=== PATIENT | female | born 1990 | race Caucasian/White ===

== ENCOUNTER 2016-12-07 13:53 | Emergency (ER) | payer OTHER ==
[~2016-12-07] VITALS: Ht 157.5 cm; Wt 68.0 kg
[~2016-12-07 13:53] MED LIST: ARIP1TAB12 PO; HYDR-3133 PO; MIRTA15 PO
[2016-12-07 13:54] VITALS: BP 127/83; PULSE 67; RESP 18; TEMP 98.2; O2SAT 97
[2016-12-07] MEDS ORDERED: PROZ20CA11 PO (17:03)
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
[2016-12-07 17:41] LABS: AMPHETAMINE, URINE NEG (NEG); BARBITURATES, URINE NEG (NEG); COCAINE, URINE NEG (NEG)
[2016-12-07] MEDS ORDERED: SODIUM CHLOR 0.9% 1000 ML INJ 1,000 ML IV ONE (17:45)
[2016-12-07] MEDS ORDERED: diphenhydrAMINE HCL 50 MG/ML VIAL IV PUSH ONE (17:45)
[2016-12-07] MEDS ORDERED: DEXAMETHASONE SOD PHOS 20 MG/5 ML VIAL IV PUSH ONE (17:45)
[2016-12-07] MEDS ORDERED: METOCLOPRAMIDE HCL 10 MG/2 ML VIAL IV PUSH ONE (17:45)
[2016-12-07 17:48] LABS: AUTOMATED NEUTROPHIL # 8.3 TH/MM3 (1.8-7.7); BASOPHIL % 0.3 % (0.0-2.0); EOSINOPHIL # 0.1 TH/MM3 (0-0.4); HEMATOCRIT 39.2 % (35.0-46.0); HEMO FLAGS DIFF FINAL; LYMPH % 22.2 % (9.0-44.0); LYMPHOCYTE # 2.5 TH/MM3 (1.0-4.8); MEAN CELL VOLUME 89.4 FL (80.0-100.0); MEAN CORPUSCULAR HGB CONC 34.6 % (32.0-36.0); MONO % 3.7 % (0.0-8.0); NEUT % 72.8 % (16.0-70.0); PLATELET COUNT 243 TH/MM3 (150-450); RED BLOOD COUNT 4.39 MIL/MM3 (4.00-5.30); RED CELL DISTRIBUTION WIDTH 13.5 % (11.6-17.2); WHITE BLOOD COUNT 11.4 TH/MM3 (4.0-11.0)
[2016-12-07 18:01] LABS: ACETAMINOPHEN LESS THAN 2.0 MCG/ML (10.0-30.0)
[2016-12-07 18:02] LABS: ALT (GPT) 14 U/L (10-53); ANION GAP 7 MEQ/L (5-15); AST (GOT) 12 U/L (15-37); BICARBONATE 27.6 MEQ/L (21.0-32.0); BLOOD UREA NITROGEN 5 MG/DL (7-18); CHLORIDE 106 MEQ/L (98-107); GLOMERULAR FILTRATION RATE 100 ML/MIN (>89); POTASSIUM 3.5 MEQ/L (3.5-5.1); SODIUM (NA) 141 MEQ/L (136-145)
[2016-12-07 18:05] LABS: ALKALINE PHOSPHATASE 61 U/L (45-117); TOTAL BILIRUBIN ADULT 0.4 MG/DL (0.2-1.0)
[2016-12-07 21:56] VITALS: BP 106/57; PULSE 60; RESP 18; O2SAT 97
[2016-12-08 01:45] VITALS: BP 110/56; PULSE 61; RESP 18; O2SAT 99
== END 2016-12-08 04:05 ==
LOC: NEPC 13:53
DX: R46.89 Other symptoms and signs involving appearance and behavior (principal); R45.851 Suicidal ideations; Z86.59 Personal history of other mental and behavioral disorders; Z86.79 Personal history of other diseases of the circulatory system; Z87.19 Personal history of other diseases of the digestive system; Z86.69 Personal history of other diseases of the nervous system and sense organs
CPT/HCPCS: 80053; 80307; 84703; 85025; 96361; 96374; 96375; 99284; J1100; J1200; J2765; J7030

== ENCOUNTER 2017-02-05 14:48 | Emergency (ER) | payer OTHER ==
[~2017-02-05] VITALS: Ht 160 cm; Wt 70.8 kg
[~2017-02-05 14:48] MED LIST changes: -ARIP1TAB12 PO; -HYDR-3133 PO; -MIRTA15 PO; +PROZ20CA11 PO
[2017-02-05 14:52] VITALS: BP 114/74; PULSE 86; RESP 18; TEMP 98.6; O2SAT 98
[2017-02-05] MEDS ORDERED: EQUE200C PO (15:07)
[2017-02-05] MEDS ORDERED: NEUR100C PO (15:07)
[2017-02-05] MEDS ORDERED: ZOLO100T PO (15:07)
[2017-02-05] MEDS ORDERED: EQUE100C PO (15:07)
--- NOTE | 2017-02-05 15:11 | PD ---
HPI Chief Complaint: Abdominal Pain Time Seen by Provider: 15:09 Travel History International Travel<30 days: No Contact w/Intl Traveler<30days: No Traveled to known affect area: No History of Present Illness HPI 26-year-old female with history of no significant past medical issues, presents to the ER 1 week history of lower abdominal pains which she currently rates it a 7 out of 10. She has been having dysuria. She denies any nausea, vomiting, fevers, back pains, or any other symptoms. She denies any unusual vaginal discharge. Modifying Factors: None Associated Signs & Symptoms: Lower abdominal discomfort and dysuria Risk Factors: None PFSH Past Medical History ADHD: Yes Bipolar Disorder: Yes Anxiety: Yes Depression: Yes Cancer: No Cardiovascular Problems: Yes (HEART MURMUR) Diminished Hearing: No Endocrine: No GERD: Yes Genitourinary: No Headaches: Yes Implanted Vascular Access Dvce: No Medical other: Yes (VIRAL MENINGITIS) Musculoskeletal: No Psychiatric: Yes (SCHIZOPHRENIA DX AGE 9, BIPOLAR, RAD, ADHD) Reproductive: No Respiratory: No Migraines: Yes Schizophrenia: Yes Tetanus Vaccination: < 5 Years Influenza Vaccination: No ?: Not LMP: 3 weeks ago : 3 Para: 3 Miscarriage: 0 : 0 Tubal Ligation: Yes Past Surgical History Section: Yes (X's 3) Other Surgery: Yes (C - SECTION, TUBAL) Social History Alcohol Use: No Tobacco Use: No Substance Use: No Allergies-Medications (Allergen,Severity, Reaction): Coded Allergies: No Known Allergies (Verified , 02/05/17) Reported Meds & Prescriptions Reported Meds & Active Scripts Active Reported Equetro ER 12 HR (Carbamazepine ER 12 HR) 200 Mg Cap 200 Mg PO HS Equetro ER 12 HR (Carbamazepine ER 12 HR) 100 Mg Cap 100 Mg PO AM Zoloft (Sertraline HCl) 100 Mg Tab 100 Mg PO DAILY Neurontin (Gabapentin) 100 Mg Cap 100 Mg PO TID Review of Systems Except as stated in HPI: all other systems reviewed are Neg Physical Exam Narrative GENERAL: Well-developed young white female patient currently none acute distress. Awake and oriented 3. SKIN: Focused skin assessment warm/dry. HEAD: Atraumatic. Normocephalic. EYES: Pupils equal and round. No scleral icterus. No injection or drainage. ENT: No nasal bleeding or discharge. Mucous membranes pink and moist. NECK: Trachea midline. No JVD. CARDIOVASCULAR: Regular rate and rhythm. No murmur appreciated. RESPIRATORY: No accessory muscle use. Clear to auscultation. Breath sounds equal bilaterally. GASTROINTESTINAL: Abdomen soft, mild suprapubic tenderness without guarding or rebound, nondistended. Hepatic and splenic margins not palpable. MUSCULOSKELETAL: No obvious deformities. No clubbing. No cyanosis. No edema. NEUROLOGICAL: Awake and alert. No obvious cranial nerve deficits. Motor grossly within normal limits. Normal speech. PSYCHIATRIC: Appropriate mood and affect; insight and judgment normal. Data Data Last Documented VS Vital Signs Date Time Temp Pulse Resp B/P Pulse Ox O2 Delivery O2 Flow Rate FiO2 02/05/17 14:52 98.6 86 18 114/74 98 Orders Ed Urine Pregnancytest Poc (02/05/17 15:05) Urinalysis - C+S If Indicated (02/05/17 15:10) Urine Culture (02/05/17 15:15) Labs Laboratory Tests Test 02/05/17 15:15 Urine Color YELLOW Urine Turbidity CLOUDY Urine pH 6.5 Urine Protein 100 mg/dL Urine Glucose (UA) NEG mg/dL Urine Ketones NEG mg/dL Urine Occult Blood SMALL Urine Nitrite NEG Urine Bilirubin NEG Urine Leukocyte Esterase LARGE Urine RBC 4-9 /hpf Urine WBC INNUM /hpf Urine WBC Clumps MOD Urine Squamous Epithelial 0-5 /hpf Cells Urine Bacteria MOD /hpf Microscopic Urinalysis Comment CULTURE INDICATED MDM Medical Decision Making Medical Screen Exam Complete: Yes Emergency Medical Condition: Yes Medical Record Reviewed: Yes Differential Diagnosis Lower abdominal discomfortUTI versus gastroenteritis versus Narrative Course Patient is not . Abdomen is fairly benign and I do not suspect an acute intra-abdominal process. She has a UTI which I plan to treat. At this point, my plan would be to release her with antibiotics and have her follow-up with primary care physician. Return for any worsening in pain, vomiting, or new symptoms as needed. The plan has been discussed with the patient and she states understanding. Diagnosis Primary Impression: UTI (urinary tract infection) Med/Other Pt SpecificInfo: Prescription(s) given Scripts Nitrofurantoin Monohydrate Macrocrystals (Macrobid)100 Mg [id number] Mg PO BID 7 Days Ref 0 Prov:Ninoska Dangelo MD 02/05/17 Disposition: 01 DISCHARGE HOME Condition: Stable [place]ai,Rewadee MD February 05, 2017 15:11
[2017-02-05 15:20] LABS: BLOOD, URINE SMALL (NEG); GLUCOSE,URINE NEG (NEG); KETONE, URINE NEG (NEG); NITRITE,URINE NEG (NEG); PH, URINE 6.5 (5.0-8.5)
[2017-02-05 16:00] LABS: URINE COLOR YELLOW (YELLW/STRAW)
[2017-02-05 16:02] LABS: BACTERIA, URINE MOD /hpf; COMMENT (UR) CULTURE INDICATED; CULTURE IF INDICATED CULTURE INDICATED; SQUAMOUS EPITHELIAL CELL URINE 0-5 /hpf (0-5); WBC, URINE INNUM /hpf (0-5)
[2017-02-05] MEDS ORDERED: MACR100C2 PO (16:07)
[2017-02-06] MEDS ORDERED: ROBA500T PO (19:25)
== END 2017-02-05 16:25 | disposition home or self-care (01) ==
LOC: PHED 14:48
DX: N39.0 Urinary tract infection, site not specified (principal)
CPT/HCPCS: 81001; 84703; 87077; 87086; 87186; 99284

== ENCOUNTER 2017-02-06 18:09 | Inpatient (IN) | payer OTHER ==
[~2017-02-06] VITALS: Ht 160 cm; Wt 72.1 kg
[2017-02-06] VITALS (10 sets, daily range): BP systolic 97–127; BP diastolic 62–70; PULSE 84–95; RESP 16–20; TEMP 98.6–101.6; O2SAT 97–100
[~2017-02-06 18:09] MED LIST changes: +EQUE100C PO; +EQUE200C PO; +MACR100C2 PO; +NEUR100C PO; -PROZ20CA11 PO; +ZOLO100T PO
[2017-02-06] MEDS ORDERED: SODIUM CHLOR 0.9% 1000 ML INJ 1,000 ML IV ONE (18:50)
[2017-02-06] MEDS ORDERED: CEFEPIME INJ 2,000 MG in SODIUM CHLORIDE 0.9% INJ 100 ML IV STA (18:50)
[2017-02-06] MEDS ORDERED: ACETAMINOPHEN 325 MG TAB PO ONE (19:00)
[2017-02-06 19:08] LABS: AUTOMATED NEUTROPHIL # 10.8 TH/MM3 (1.8-7.7); BASOPHIL % 0.2 % (0.0-2.0); EOSINOPHIL # 0.1 TH/MM3 (0-0.4); EOSINOPHIL % 0.4 % (0.0-4.0); LYMPH % 9.1 % (9.0-44.0); LYMPHOCYTE # 1.2 TH/MM3 (1.0-4.8); MEAN CORPUSCULAR HEMOGLOBIN 31.2 PG (27.0-34.0); MEAN CORPUSCULAR HGB CONC 34.7 % (32.0-36.0); MONO % 6.1 % (0.0-8.0); NEUT % 84.2 % (16.0-70.0); PLATELET COUNT 193 TH/MM3 (150-450); RED BLOOD COUNT 4.34 MIL/MM3 (4.00-5.30); RED CELL DISTRIBUTION WIDTH 12.4 % (11.6-17.2); WHITE BLOOD COUNT 12.9 TH/MM3 (4.0-11.0)
[2017-02-06 19:11] LABS: HEMO FLAGS DIFF FINAL
[2017-02-06 19:16] LABS: CHLORIDE 103 MEQ/L (98-107); POTASSIUM 3.3 MEQ/L (3.5-5.1); SODIUM (NA) 139 MEQ/L (136-145)
[2017-02-06 19:20] LABS: ANION GAP 8 MEQ/L (5-15); BLOOD UREA NITROGEN 6 MG/DL (7-18)
[2017-02-06 19:23] LABS: ALT (GPT) 21 U/L (10-53); AST (GOT) 19 U/L (15-37); GLOMERULAR FILTRATION RATE 93 ML/MIN (>89)
[2017-02-06 19:24] LABS: TOTAL BILIRUBIN ADULT 0.5 MG/DL (0.2-1.0)
[2017-02-06] MEDS ORDERED: ROBA500T PO (19:25)
[2017-02-06 19:26] LABS: ALKALINE PHOSPHATASE 79 U/L (45-117)
--- NOTE | 2017-02-06 19:28 | PD ---
HPI Chief Complaint: Syncope/Near-Syncope Time Seen by Provider: 19:09 Travel History International Travel<30 days: No Contact w/Intl Traveler<30days: No Traveled to known affect area: No History of Present Illness HPI The patient is a 26-year-old female that passed out about 3 times the last 24 hours. She passed out yesterday at work and then again today and then had a near syncopal episode today. Is not known when she had the syncopal episode whether she was sitting or standing, and she has not remember the episode. She does have a history of seizures and is on Tegretol for this. Her mother states she was trying to call her in the bathroom for about 10 minutes and she was out for another 5 minutes after she was found. The patient denies any injury or tongue biting. She did apparently landed on her left shoulder and had some temporary discomfort on the anterior portion of the shoulder but this is gone now. She denies any head or neck trauma. She has had a fever and was treated with Macrobid for urinary tract infection yesterday. She states she is taking her medications correctly. She does not have a primary care physician, Dr. De Dios is her psychiatrist. She is on multiple psychotropic agents. She does have a history of ADHD, bipolar disorder, depression, schizophrenia, migraine headaches and anxiety. 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 She denies any headache or stiff neck at this time. PFSH Past Medical History ADHD: Yes Bipolar Disorder: Yes Anxiety: Yes Depression: Yes Cancer: No Cardiovascular Problems: Yes (HEART MURMUR) Diminished Hearing: No Endocrine: No GERD: Yes Genitourinary: No Headaches: Yes Implanted Vascular Access Dvce: No Medical other: Yes (VIRAL MENINGITIS) Musculoskeletal: No Psychiatric: Yes (SCHIZOPHRENIA DX AGE 9, BIPOLAR, RAD, ADHD) Reproductive: No Respiratory: No Migraines: Yes Schizophrenia: Yes Influenza Vaccination: No ?: Not LMP: 01/04/17 : 3 Para: 3 Miscarriage: 0 : 0 Tubal Ligation: Yes Past Surgical History Section: Yes (X's 3) Other Surgery: Yes (C - SECTION, TUBAL) Social History Alcohol Use: No Tobacco Use: No Substance Use: No Allergies-Medications (Allergen,Severity, Reaction): Coded Allergies: No Known Allergies (Verified , 02/06/17) Reported Meds & Prescriptions Reported Meds & Active Scripts Active Macrobid (Nitrofurantoin Monoh/Nitrofur Macro) 100 Mg Cap 100 Mg PO BID 7 Days Reported Robaxin (Methocarbamol) 500 Mg Tab 500 Mg PO TID PRN Equetro ER 12 HR (Carbamazepine ER 12 HR) 200 Mg Cap 200 Mg PO HS Equetro ER 12 HR (Carbamazepine ER 12 HR) 100 Mg Cap 100 Mg PO AM Zoloft (Sertraline HCl) 100 Mg Tab 100 Mg PO DAILY Neurontin (Gabapentin) 100 Mg Cap 100 Mg PO TID Review of Systems Except as stated in HPI: all other systems reviewed are Neg Physical Exam Narrative GENERAL: The patient is alert, oriented 3 in no apparent distress. Her vital signs show blood pressure of 97/70, pulse of 91 and temperature 101.6. SKIN: Focused skin assessment warm/dry. HEAD: Atraumatic. Normocephalic. EYES: Pupils equal and round. No scleral icterus. No injection or drainage. ENT: No nasal bleeding or discharge. Mucous membranes pink and moist. NECK: Trachea midline. No JVD. CARDIOVASCULAR: Regular rate and rhythm. No murmur appreciated. RESPIRATORY: No accessory muscle use. Clear to auscultation. Breath sounds equal bilaterally. GASTROINTESTINAL: Abdomen soft, non-tender, nondistended. Hepatic and splenic margins not palpable. No guarding or rebound is present. MUSCULOSKELETAL: No obvious deformities. No clubbing. No cyanosis. No edema. There is minimal tenderness on the left anterior shoulder but no deformity and the patient has full range of motion of the shoulder without any pain or radiation of pain. NEUROLOGICAL: Awake and alert. No obvious cranial nerve deficits. Motor grossly within normal limits. Normal speech. PSYCHIATRIC: Appropriate mood and affect; insight and judgment normal. Data Data Last Documented VS Vital Signs Date Time Temp Pulse Resp B/P Pulse Ox O2 Delivery O2 Flow Rate FiO2 02/06/17 20:30 84 18 106/63 100 Room Air 02/06/17 19:30 98.9 Orders Complete Blood Count With Diff (02/06/17 18:50) Comprehensive Metabolic Panel (02/06/17 18:50) Lactic Acid Sepsis Protocol (02/06/17 18:50) Urinalysis - C+S If Indicated (02/06/17 18:50) Blood Culture (02/06/17 18:50) Chest, Single Ap (02/06/17 18:50) Blood Glucose (02/06/17 18:50) Ecg Monitoring (02/06/17 18:50) Iv Access Insert/Monitor (02/06/17 18:50) Oximetry (02/06/17 18:50) Oxygen Administration (02/06/17 18:50) Acetaminophen (Tylenol) (02/06/17 19:00) Cefepime Inj (Maxipime Inj) (02/06/17 18:50) Sodium Chlor 0.9% 1000 Ml Inj (Ns 1000 M (02/06/17 18:50) Ed Urine Pregnancytest Poc (02/06/17 18:50) Sodium Chlor 0.9% 1000 Ml Inj (Ns 1000 M (02/06/17 19:15) Drug Screen, Random Urine (02/06/17 19:19) Electrocardiogram (02/06/17 ) Alcohol (Ethanol) (02/06/17 18:35) Carbamazepine (Tegretol) (02/06/17 18:35) Vancomycin Consult Pharmacy (Vancomycin (02/06/17 20:45) Cefepime Inj (Maxipime Inj) (02/07/17 08:00) ^ Seizure Precautions (02/06/17 20:42) Lorazepam Inj (Ativan Inj) (02/06/17 20:45) Admit To Inpatient (02/06/17 ) Vital Signs (Adult) Q4H (02/06/17 20:42) Activity Oob With Assistance (02/06/17 20:42) Incubator Tender / Telemetry .CONTINUOUS (02/06/17 20:42) Intake + Output MATTHEW.QSHIFT (02/06/17 20:42) Diet Regular Basic (02/07/17 Breakfast) Sodium Chlor 0.9% 1000 Ml Inj (Ns 1000 M (02/06/17 20:42) Sodium Chloride 0.9% Flush (Ns Flush) (02/06/17 20:45) Sodium Chloride 0.9% Flush (Ns Flush) (02/06/17 21:00) Ondansetron Inj (Zofran Inj) (02/06/17 20:45) Bisacodyl Supp (Dulcolax Supp) (02/06/17 20:45) Comprehensive Metabolic Panel (02/07/17 06:00) Complete Blood Count With Diff (02/07/17 06:00) Scd Bilateral/Knee High MATTHEW.BID (02/06/17 20:42) Daren Bilateral/Knee High MATTHEW.QSHIFT (02/06/17 20:42) Acetaminophen (Tylenol) (02/06/17 20:45) Acetamin-Hydrocod 325-5 Mg (Antelope 5-325 (02/06/17 20:45) Acetamin-Hydrocod 325-10 Mg (Antelope 10-32 (02/06/17 20:45) Inpatient Certification (02/06/17 ) Gabapentin (Neurontin) (02/07/17 09:00) Sertraline (Zoloft) (02/07/17 09:00) Patient Own Medication (02/06/17 21:15) Admit Order (Ed Use Only) (02/06/17 21:06) Patient Own Medication (02/07/17 09:00) Labs Laboratory Tests Test 02/06/17 02/06/17 02/06/17 18:35 19:20 21:00 White Blood Count 12.9 TH/MM3 Red Blood Count 4.34 MIL/MM3 Hemoglobin 13.5 GM/DL Hematocrit 39.0 % Mean Corpuscular Volume 90.0 FL Mean Corpuscular Hemoglobin 31.2 PG Mean Corpuscular Hemoglobin 34.7 % Concent Red Cell Distribution Width 12.4 % Platelet Count 193 TH/MM3 Mean Platelet Volume 8.0 FL Neutrophils (%) (Auto) 84.2 % Lymphocytes (%) (Auto) 9.1 % Monocytes (%) (Auto) 6.1 % Eosinophils (%) (Auto) 0.4 % Basophils (%) (Auto) 0.2 % Neutrophils # (Auto) 10.8 TH/MM3 Lymphocytes # (Auto) 1.2 TH/MM3 Monocytes # (Auto) 0.8 TH/MM3 Eosinophils # (Auto) 0.1 TH/MM3 Basophils # (Auto) 0.0 TH/MM3 CBC Comment DIFF FINAL Differential Comment Sodium Level 139 MEQ/L Potassium Level 3.3 MEQ/L Chloride Level 103 MEQ/L Carbon Dioxide Level 28.0 MEQ/L Anion Gap 8 MEQ/L Blood Urea Nitrogen 6 MG/DL Creatinine 0.74 MG/DL Estimat Glomerular Filtration 93 ML/MIN Rate Random Glucose 101 MG/DL Calcium Level 8.6 MG/DL Total Bilirubin 0.5 MG/DL Aspartate Amino Transf 19 U/L (AST/SGOT) Alanine Aminotransferase 21 U/L (ALT/SGPT) Alkaline Phosphatase 79 U/L Total Protein 8.0 GM/DL Albumin 3.6 GM/DL Carbamazepine (Tegretol) Level 2.3 MCG/ML Ethyl Alcohol Level LESS THAN 3 MG/DL Lactic Acid Level 0.7 mmol/L Urine Color YELLOW Urine Turbidity CLEAR Urine pH 6.0 Urine Specific [place] 1.012 Urine Protein TRACE mg/dL Urine Glucose (UA) NEG mg/dL Urine Ketones NEG mg/dL Urine Occult Blood NEG Urine Nitrite NEG Urine Bilirubin NEG Urine Leukocyte Esterase TRACE Urine RBC 0-3 /hpf Urine WBC 20-24 /hpf Urine Squamous Epithelial 0-5 /hpf Cells Urine Bacteria FEW /hpf Microscopic Urinalysis Comment CULTURE INDICATED Urine Opiates Screen NEG Urine Barbiturates Screen NEG Urine Amphetamines Screen NEG Urine Benzodiazepines Screen NEG Urine Cocaine Screen NEG Urine Cannabinoids Screen NEG MDM Medical Decision Making Medical Screen Exam Complete: Yes Emergency Medical Condition: Yes Medical Record Reviewed: Yes Interpretation(s) The urine shows trace leukocyte Estrace, 20-24 white cells and few bacteria and culture is indicated. Differential Diagnosis Sepsis, dehydration, viral gastroenteritis, urinary tract infection, electrolyte disorder, pregnancyunlikely, renal insufficiency Narrative Course The patient had sepsis criteria by elevated heart rate, elevated white count and temperature. Her lactic acid was normal. Very likely the source of the fever/infection is a urinary tract infection. She very likely has a pyelonephritis. The patient will be admitted to the [facility] service. Sepsis Criteria SIRS Criteria (2 or more): Temp > 100.9 or < 96.8, Heart rate over 90, WBC > 99057, < 4000 or > 10% bands Physician Communication Physician Communication I discussed the patient with Dr. Hobbs. Diagnosis Primary Impression: Sepsis Additional Impressions: Urinary tract infection Hypotension Dehydration Admitting Information Admitting Physician Requests: Admit Marcos Iniguez MD February 06, 2017 19:28
--- NOTE | 2017-02-06 19:56 | RADHPO ---
EXAM DATE/TIME: 02/06/2017 19:02 [facility] COMPARISON: No previous studies available for comparison. INDICATIONS : Fever. Syncopal episode. MEDICAL HISTORY : None. SURGICAL HISTORY : None. ENCOUNTER: Initial ACUITY: 1 day PAIN SCORE: 0/10 LOCATION: Bilateral chest FINDINGS: A single view of the chest demonstrates the lungs to be symmetrically aerated without evidence of mas s, infiltrate or effusion. The cardiomediastinal contours are unremarkable. Osseous structures are intact. CONCLUSION: No acute disease. Jeffrey Quiroz MD on February 06, 2017 at 19:54 Board Certified Radiologist. This report was verified electronically.
[2017-02-06] MEDS: SODIUM CHLOR 0.9% 1000 ML INJ 1,000 ML IV SCH ×3 (20:38→21:58)
[2017-02-06] MEDS ORDERED: Vancomycin Consult Pharmacy 1 EA OTHER SCH (20:45)
[2017-02-06] MEDS ORDERED: ACETAMINOPHEN 325 MG TAB PO PRN (20:45)
[2017-02-06] MEDS ORDERED: ACETAMINOPHEN/HYDROcodone 325 MG/5 MG TAB PO PRN (20:45)
[2017-02-06] MEDS ORDERED: ONDANSETRON HCL 4 MG/2 ML VIAL IVP PRN (20:45)
[2017-02-06] MEDS ORDERED: LORazepam 2 MG/ML VIAL IV PUSH PRN (20:45)
[2017-02-06] MEDS ORDERED: SODIUM CHLORIDE 0.9% FLUSH 10 ML FLUSH IV FLUSH PRN (20:45)
[2017-02-06] MEDS ORDERED: BISACODYL 10 MG SUPP RECTAL PRN (20:45)
[2017-02-06] MEDS: SODIUM CHLORIDE 0.9% FLUSH 10 ML FLUSH IV FLUSH SCH (21:00)
[2017-02-06] MEDS ORDERED: CARBAMAZEPINE 200 MG PO SCH (21:15)
[2017-02-06] MEDS ORDERED: VANCOMYCIN 1,000 MG/NS 250 ML IV ONE ×2 (21:15)
[2017-02-06 21:20] LABS: BLOOD, URINE NEG (NEG); GLUCOSE,URINE NEG (NEG); KETONE, URINE NEG (NEG); NITRITE,URINE NEG (NEG)
[2017-02-06 21:32] LABS: BACTERIA, URINE FEW /hpf; COMMENT (UR) CULTURE INDICATED; CULTURE IF INDICATED CULTURE INDICATED; RBC, URINE 0-3 /hpf (0-3); SQUAMOUS EPITHELIAL CELL URINE 0-5 /hpf (0-5); URINE COLOR YELLOW (YELLW/STRAW)
--- NOTE | 2017-02-06 21:34 | EKG ---
Date Performed: 02/06/2017 Time Performed: 19:27:16 PTAGE: 26 years EKG: Sinus rhythm Normal ECG PREVIOUS TRACING : 09/02/2016 12.16 DOCTOR: Antonieta Watson Interpretating Date/Time 02/06/2017 21:32:56
[2017-02-06 21:38] LABS: AMPHETAMINE, URINE NEG (NEG)
[2017-02-06 21:39] LABS: BARBITURATES, URINE NEG (NEG)
[2017-02-06 21:42] LABS: COCAINE, URINE NEG (NEG)
[2017-02-06] MEDS: VANCOMYCIN 1,000 MG/NS 250 ML IV SCH ×2 (23:23)
[2017-02-07] VITALS (7 sets, daily range): BP systolic 96–111; BP diastolic 60–77; PULSE 76–104; RESP 12–19; TEMP 97.7–101.3; O2SAT 97–100
[2017-02-07] MEDS ORDERED: diphenhydrAMINE HCL 50 MG/ML VIAL IV PUSH ONE (00:45)
[2017-02-07] MEDS ORDERED: POTASSIUM CHLORIDE 10 MEQ CONTROLLED RELEASE TAB PO ONE (06:00)
[2017-02-07] MEDS: VANCOMYCIN 1,000 MG/NS 250 ML IV SCH ×2 (06:21)
[2017-02-07] MEDS: SODIUM CHLOR 0.9% 1000 ML INJ 1,000 ML IV SCH ×2 (06:24→19:27)
[2017-02-07] MEDS: CARBAMAZEPINE 200 MG PO SCH ×2 (06:55→21:41)
[2017-02-07 06:58] LABS: AUTOMATED NEUTROPHIL # 8.2 TH/MM3 (1.8-7.7); BASOPHIL % 0.2 % (0.0-2.0); EOSINOPHIL # 0.1 TH/MM3 (0-0.4); EOSINOPHIL % 1.3 % (0.0-4.0); HEMATOCRIT 33.2 % (35.0-46.0); HEMO FLAGS DIFF FINAL; LYMPH % 10.4 % (9.0-44.0); LYMPHOCYTE # 1.1 TH/MM3 (1.0-4.8); MEAN CELL VOLUME 91.2 FL (80.0-100.0); MEAN CORPUSCULAR HEMOGLOBIN 31.7 PG (27.0-34.0); MEAN CORPUSCULAR HGB CONC 34.7 % (32.0-36.0); MONO % 7.6 % (0.0-8.0); NEUT % 80.5 % (16.0-70.0); PLATELET COUNT 158 TH/MM3 (150-450); RED BLOOD COUNT 3.64 MIL/MM3 (4.00-5.30); RED CELL DISTRIBUTION WIDTH 12.9 % (11.6-17.2); WHITE BLOOD COUNT 10.2 TH/MM3 (4.0-11.0)
[2017-02-07 07:20] LABS: BICARBONATE 23.8 MEQ/L (21.0-32.0); MAGNESIUM 1.8 MG/DL (1.5-2.5); POTASSIUM 3.4 MEQ/L (3.5-5.1); TOTAL BILIRUBIN ADULT 0.5 MG/DL (0.2-1.0)
[2017-02-07] MEDS ORDERED: CEFEPIME INJ 1,000 MG in SODIUM CHLORIDE 0.9% INJ 100 ML IV SCH (08:00)
[2017-02-07] MEDS: SODIUM CHLORIDE 0.9% FLUSH 10 ML FLUSH IV FLUSH SCH ×2 (09:00→21:00)
[2017-02-07] MEDS: GABAPENTIN 100 MG CAP PO SCH ×3 (09:10→17:29)
[2017-02-07] MEDS: SERTRALINE HCL 100 MG TAB PO SCH (09:10)
--- NOTE | 2017-02-07 09:35 | HHI.HP ---
[facility] No Primary Care Physician Admission Diagnosis sepsis, dehydration with hypotension, UTI Diagnoses: Chief Complaint: Syncope Travel History International Travel<30 Days: No Contact w/Intl Traveler <30 Da: No Traveled to Known Affected Are: No Sepsis Criteria SIRS Criteria (2 or more): Temp > 100.9 or < 96.8, Heart rate over 90, WBC > 05061, < 4000 or > 10% bands Sepsis Criteria (SIRS+source): Infect source susp/known Criteria Outcome: Meets SIRS criteria, Meets sepsis criteria History of Present Illness This a 26-year-old female who returns to the emergency department after being evaluated for abdominal pain secondary to UTI. This time she passed out about 3 times the last 24 hours. She passed out 2 days ago at work and then again yesterday and then had a near syncopal episode. She reports of being lightheaded and lost her vision followed by her hearing. Is not known when she had the syncopal episode whether she was sitting or standing, and she has not remember the episode. She does have a history of seizures and is on Tegretol for this. Level is subtherapeutic. Her mother states she was trying to call her in the bathroom for about 10 minutes and she was out for another 5 minutes after she was found. The patient denies any injury or tongue biting. She did apparently landed on her left shoulder and had some temporary discomfort on the anterior portion of the shoulder but this is resolved at the moment. She denies any head or neck trauma. Today she reports of a mild occipital headache. She has had a fever and was treated with Macrobid for urinary tract infection. She states she is taking her medications correctly. She does not have a primary care physician, Dr. De Dios is her psychiatrist. She is on multiple psychotropic agents. She does have a history of ADHD, bipolar disorder , depression, schizophrenia, migraine and anxiety. 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 She denies stiff neck, visual changes, numbness, focal weakness, nausea and vomiting at this time. She reports of dysuria and constant abdominal and lower back pain for the past several days. Today she feels better and wants to go home but understands she needs to stay to receive IV antibiotics. Last febrile episode of 101 about 10 hours ago Review of Systems Endocrine: DENIES: Abnorml menstrual pattern, Heat/cold intolerance, Polydipsia , Polyuria, Polyphagia Integumentary: DENIES: Rash Except as stated in HPI: all other systems reviewed are Neg Past Family Social History Past Medical History As previously mentioned. Also has GERD . LMP 01/04/17. Negative test Past Surgical History section and tubal ligation Reported Medications Robaxin (Methocarbamol) 500 Mg Tab 500 Mg PO TID PRN Equetro ER 12 HR (Carbamazepine ER 12 HR) 200 Mg Cap 200 Mg PO HS Equetro ER 12 HR (Carbamazepine ER 12 HR) 100 Mg Cap 100 Mg PO AM Zoloft (Sertraline HCl) 100 Mg Tab 100 Mg PO DAILY Neurontin (Gabapentin) 100 Mg Cap 100 Mg PO TID Allergies: Coded Allergies: No Known Allergies (Verified , 02/06/17) Family History No CVA or seizure disorder Social History Does not smoke or drink. 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 Physical Exam Vital Signs Vital Signs Date Time Temp Pulse Resp B/P Pulse Ox O2 Delivery O2 Flow Rate FiO2 02/07/17 08:00 99.1 101 16 100/63 97 02/07/17 04:45 100.0 91 12 96/65 100 02/07/17 00:39 101.3 104 18 111/77 100 02/07/17 00:23 18 02/06/17 23:00 85 02/06/17 22:00 98.6 90 16 127/69 99 Room Air 02/06/17 21:30 90 18 115/69 100 Room Air 02/06/17 21:12 100.0 88 20 127/70 98 02/06/17 20:30 84 18 106/63 100 Room Air 02/06/17 20:00 84 18 108/62 98 Room Air 02/06/17 19:30 18 98 Room Air 02/06/17 19:30 98.9 87 18 112/64 98 Room Air 02/06/17 19:30 96 Room Air 02/06/17 18:45 100.4 95 16 101/62 97 Room Air 02/06/17 18:35 92 16 98 Room Air 02/06/17 18:35 16 97 Room Air 02/06/17 18:20 101.6 91 16 97/70 98 Physical Exam GENERAL: This is a well-nourished, well-developed patient, in no apparent distress. SKIN: No rashes, ecchymoses or lesions. Cool and dry. HEAD: Atraumatic. Normocephalic. No temporal or scalp tenderness. EYES: Pupils equal round and reactive. Extraocular motions intact. No scleral icterus. No injection or drainage. ENT: Nose without bleeding, purulent drainage or septal hematoma. Throat without erythema, tonsillar hypertrophy or exudate. Uvula midline. Airway patent. NECK: Trachea midline. No JVD or lymphadenopathy. Supple, nontender, no meningeal signs. CARDIOVASCULAR: Regular rate and rhythm without murmurs, gallops, or rubs. RESPIRATORY: Clear to auscultation. Breath sounds equal bilaterally. No wheezes , rales, or rhonchi. GASTROINTESTINAL: Abdomen soft, slightly tender hypogastric and right lower quadrants, nondistended. No rebound tenderness. No guarding. CVA tenderness bilaterally MUSCULOSKELETAL: Extremities without clubbing, cyanosis, or edema. No joint tenderness, effusion, or edema noted. No calf tenderness. Negative Homans sign bilaterally. NEUROLOGICAL: Awake and alert. Cranial nerves II through XII intact. Motor and sensory grossly within normal limits. Five out of 5 muscle strength in all muscle groups. Normal speech. Laboratory Laboratory Tests Test 02/06/17 02/06/17 02/06/17 02/07/17 18:35 19:20 21:00 06:35 White Blood Count 12.9 10.2 Red Blood Count 4.34 3.64 Hemoglobin 13.5 11.5 Hematocrit 39.0 33.2 Mean Corpuscular Volume 90.0 91.2 Mean Corpuscular Hemoglobin 31.2 31.7 Mean Corpuscular Hemoglobin 34.7 34.7 Concent Red Cell Distribution Width 12.4 12.9 Platelet Count 193 158 Mean Platelet Volume 8.0 7.5 Neutrophils (%) (Auto) 84.2 80.5 Lymphocytes (%) (Auto) 9.1 10.4 Monocytes (%) (Auto) 6.1 7.6 Eosinophils (%) (Auto) 0.4 1.3 Basophils (%) (Auto) 0.2 0.2 Neutrophils # (Auto) 10.8 8.2 Lymphocytes # (Auto) 1.2 1.1 Monocytes # (Auto) 0.8 0.8 Eosinophils # (Auto) 0.1 0.1 Basophils # (Auto) 0.0 0.0 CBC Comment DIFF FINAL DIFF FINAL Differential Comment Sodium Level 139 143 Potassium Level 3.3 3.4 Chloride Level 103 111 Carbon Dioxide Level 28.0 23.8 Anion Gap 8 8 Blood Urea Nitrogen 6 5 Creatinine 0.74 0.51 Estimat Glomerular Filtration 93 144 Rate Random Glucose 101 87 Calcium Level 8.6 7.3 Total Bilirubin 0.5 0.5 Aspartate Amino Transf 19 23 (AST/SGOT) Alanine Aminotransferase 21 18 (ALT/SGPT) Alkaline Phosphatase 79 58 Total Protein 8.0 5.8 Albumin 3.6 2.5 Carbamazepine (Tegretol) Level 2.3 Ethyl Alcohol Level LESS THAN 3 Lactic Acid Level 0.7 Urine Color YELLOW Urine Turbidity CLEAR Urine pH 6.0 Urine Specific [place] 1.012 Urine Protein TRACE Urine Glucose (UA) NEG Urine Ketones NEG Urine Occult Blood NEG Urine Nitrite NEG Urine Bilirubin NEG Urine Leukocyte Esterase TRACE Urine RBC 0-3 Urine WBC 20-24 Urine Squamous Epithelial 0-5 Cells Urine Bacteria FEW Microscopic Urinalysis Comment CULTURE INDICATED Urine Opiates Screen NEG Urine Barbiturates Screen NEG Urine Amphetamines Screen NEG Urine Benzodiazepines Screen NEG Urine Cocaine Screen NEG Urine Cannabinoids Screen NEG Protein Corrected Calcium 8.0 Magnesium Level 1.8 Total Creatine Kinase 51 Date/Time Procedure Status Source Growth 02/06/17 21:00 Urine Culture Received Urine Clean Catch Pending 02/06/17 19:25 Aerobic Blood Culture Received Blood Peripheral Pending 02/06/17 19:25 Anaerobic Blood Culture Received Blood Peripheral Pending Result Diagram: 02/07/17 0635 02/07/17 0635 Imaging EKG tracing interpreted by me with sinus rhythm Chest x-ray image interpreted by me with no acute cardiopulmonary disease Last Impressions Chest X-Ray 02/06/17 1850 Signed Impressions: Service Date/Time: Monday, February 06, 2017 19:02 - CONCLUSION: No acute disease. Jeffrey Quiroz MD Assessment and Plan Problem List: (1) Sepsis ICD Code: A41.9 Status: Acute (2) Urinary tract infection ICD Code: N39.0 Status: Acute Assessment and Plan This a 26-year-old female who returns to the emergency department after being evaluated for abdominal pain secondary to UTI. This time she passed out about 3 times the last 24 hours. She does have a history of seizures and is on Tegretol for this. Level is subtherapeutic. Sepsis with tachycardia, fever and leukocytosis. We'll continue antibiotics. Follow cultures Gram-negative argenis UTI. We'll switch antibiotics from IV vancomycin and cefepime to IV Rocephin History of herpes encephalitis . Patient's clinical picture does not fit COMPLIANCE LEAD infection. We'll continue to monitor Syncope with history of seizures and subtherapeutic Tegretol. We will give stat dose of 20 mg Tegretol and continue home dose of 100 mg in the morning and 20 mg at bedtime and follow level. Seizure precautions. Obtain EEG. Patient aware not to drive for 6 months, carry young kids, swim alone and climb heights. Chronic medical conditions of ADHD, bipolar disorder, depression, schizophrenia , migraine and anxiety. Stable continue outpatient medications as appropriate DVT prophylaxis with SCD and early ambulation Discussed Condition With Patient and nursing staff Physician Certification 2 Midnight Certification Type: Admission for Inpatient Services Order for Inpatient Services The services are ordered in accordance with Medicare regulations or non- Medicare payer requirements, as applicable. In the case of services not specified as inpatient-only, they are appropriately provided as inpatient services in accordance with the 2-midnight benchmark. Estimated LOS (days): 2 days is the estimated time the patient will need to remain in the hospital, assuming treatment plan goals are met and no additional complications. Post-Hospital Plan: Mayo Del Cid MD February 07, 2017 09:35
[2017-02-07] MEDS: ACETAMINOPHEN/HYDROcodone 325 MG/10 MG TAB PO PRN ×2 (12:15→18:48)
[2017-02-07] MEDS ORDERED: LACT PO (14:07)
--- NOTE | 2017-02-07 14:07 | HHI.DCPOC ---
Discharge Care Plan Diagnosis: (1) Sepsis (2) Urinary tract infection Your Health Problems Are: Difficulty with ADL Exercise Tolerance Goals to Promote Your Health * To prevent worsening of your condition and complications * To maintain your health at the optimal level Directions to Meet Your Goals Take your medications as prescribed Follow your dietary instruction Follow activity as directed Keep your appointments as scheduled Take your immunizations and boosters as scheduled If your symptoms worsen call your PCP, if no PCP go to Urgent Care Center or Emergency Room Smoking is Dangerous to Your Health. Avoid second hand smoke Call the 24-hour hour crisis hotline for domestic abuse at Mayo Mallory MD February 07, 2017 14:07
[2017-02-07] MEDS: LACTOBACILLUS ACIDOPHILUS TAB PO SCH (17:29)
[2017-02-07] MEDS ORDERED: MAGNESIUM SULFATE 1 GM PREMIX 100 ML IV ONE (18:45)
[2017-02-07] MEDS ORDERED: POTASSIUM CHLORIDE 20 MEQ CONTROLLED RELEASE TAB PO ONE (18:45)
--- NOTE | 2017-02-07 18:46 | MG ---
cc: DAVE PRICE Lab No: Date: Age: 26 Sex: F Race: HISTORY: 26 year-old with seizures, anxiety. MEDICATIONS: 1. Neurontin. 2. Zoloft. 3. Tegretol. 4. Benadryl. 5. [place]. DESCRIPTION OF THE RECORDIN Hz 60 microvolt symmetric posterior rhythm is seen. The recording overall is synchronous and symmetric. Photic stimulation was performed without significant posterior driving. No hemisphere asymmetries are noted. No epileptiform or seizure activity is seen. The patient falls asleep and reaches stage II sleep, which is synchronous and symmetric. IMPRESSION: A normal awake and stage II sleep EEG. No evidence for a focal or diffuse abnormality. MD AMOR Au/MARÍA /6:26 PM /6:42 PM
[2017-02-07] MEDS: cefTRIAXone INJ 1,000 MG in SODIUM CHLORIDE 0.9% INJ 100 ML IV SCH (21:42)
[2017-02-08] VITALS (7 sets, daily range): BP systolic 85–116; BP diastolic 53–73; PULSE 61–84; RESP 16–19; TEMP 96.9–98.8; O2SAT 80–98
[2017-02-08] MEDS: ACETAMINOPHEN/HYDROcodone 325 MG/10 MG TAB PO PRN ×3 (00:12→19:59)
[2017-02-08] MEDS ORDERED: PHARMACY ORDERED LAB ONE (05:45)
[2017-02-08 06:58] LABS: POTASSIUM 3.7 MEQ/L (3.5-5.1)
[2017-02-08 07:05] LABS: BICARBONATE 25.3 MEQ/L (21.0-32.0); MAGNESIUM 2.3 MG/DL (1.5-2.5)
[2017-02-08] MEDS: CARBAMAZEPINE 100 MG PO SCH (08:20)
[2017-02-08] MEDS: SERTRALINE HCL 100 MG TAB PO SCH (08:20)
[2017-02-08] MEDS: LACTOBACILLUS ACIDOPHILUS TAB PO SCH ×3 (08:21→18:05)
[2017-02-08] MEDS: GABAPENTIN 100 MG CAP PO SCH ×3 (08:21→18:05)
[2017-02-08] MEDS: SODIUM CHLORIDE 0.9% FLUSH 10 ML FLUSH IV FLUSH SCH ×2 (08:21→19:59)
--- NOTE | 2017-02-08 09:49 | HHI.PR ---
Subjective Remarks Follow-up sepsis and UTI. No recurrence of fever but continues to have headache which she reports is her usual migraine with throbbing bifrontal discomfort. She appears sleepy after taking Lortab she has been counseled regarding narcotics. Also with low BP with dizziness after lortab. Had diarrhea yesterday. Discussed with RN Objective Vitals Vital Signs Date Time Temp Pulse Resp B/P Pulse Ox O2 Delivery O2 Flow Rate FiO2 02/08/17 08:00 98.3 75 16 85/53 98 02/08/17 04:00 97.6 75 19 89/59 97 02/08/17 01:12 18 02/08/17 00:00 98.8 80 19 116/73 80 02/07/17 20:00 97.7 83 19 111/63 100 02/07/17 20:00 76 02/07/17 16:00 98.0 80 16 101/60 98 02/07/17 16:00 98.0 80 18 101/60 98 02/07/17 12:00 99.0 90 16 104/66 98 I/O 02/07/17 02/07/17 02/07/17 02/08/17 02/08/17 02/08/17 06:59 14:59 22:59 06:59 14:59 22:59 Intake Total 1076 ml 220 ml 240 ml 2245 ml Balance 1076 ml 220 ml 240 ml 2245 ml Intake Oral 240 ml 220 ml 240 ml 240 ml IV Total 836 ml 2005 ml # Voids 1 4 4 # Bowel Movements 1 1 Result Diagram: 02/07/17 0635 02/08/17 0545 Imaging Last Impressions Chest X-Ray 02/06/17 1850 Signed Impressions: Service Date/Time: Monday, February 06, 2017 19:02 - CONCLUSION: No acute disease. Jeffrey Quiroz MD Objective Remarks GENERAL: This is a well-nourished, well-developed patient, in no apparent distress. SKIN: No rashes, ecchymoses or lesions. Cool and dry. HEAD: Atraumatic. Normocephalic. No temporal or scalp tenderness. EYES: Pupils equal round and reactive. Extraocular motions intact. No scleral icterus. No injection or drainage. ENT: Nose without bleeding, purulent drainage or septal hematoma. Throat without erythema, tonsillar hypertrophy or exudate. Uvula midline. Airway patent. NECK: Trachea midline. No JVD or lymphadenopathy. Supple, nontender, no meningeal signs. CARDIOVASCULAR: Regular rate and rhythm without murmurs, gallops, or rubs. RESPIRATORY: Clear to auscultation. Breath sounds equal bilaterally. No wheezes , rales, or rhonchi. GASTROINTESTINAL: Abdomen soft, slightly tender hypogastric and right lower quadrants, nondistended. No rebound tenderness. No guarding. No CVA tenderness bilaterally MUSCULOSKELETAL: Extremities without clubbing, cyanosis, or edema. No joint tenderness, effusion, or edema noted. No calf tenderness. Negative Homans sign bilaterally. NEUROLOGICAL: Appears drowsy but oriented 4. Cranial nerves II through XII intact. Motor and sensory grossly within normal limits. Five out of 5 muscle strength in all muscle groups. Normal speech. She is nonfocal Procedures none A/P Problem List: (1) Sepsis ICD Code: A41.9 Status: Acute (2) Urinary tract infection ICD Code: N39.0 Status: Acute Assessment and Plan This a 26-year-old female who returns to the emergency department after being evaluated for abdominal pain secondary to UTI. This time she passed out about 3 times the last 24 hours. She does have a history of seizures and is on Tegretol for this. Level is subtherapeutic. Sepsis with tachycardia, fever and leukocytosis. This is resolved. We'll continue antibiotics. Follow cultures Escherichia coli UTI. Continue IV Rocephin History of herpes encephalitis . 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 We'll continue to monitor Syncope with history of seizures and subtherapeutic Tegretol. Improved with therapeutic Tegretol level after receiving stat dose of 200 mg. continue home dose of 100 mg in the morning and 20 mg at bedtime and follow level. Seizure precautions. Unremarkable EEG. Patient aware not to drive for 6 months, carry young kids, swim alone and climb heights. Migraine attack. Imitrex subcutaneous 1. Fioricet. Mild hypotension with dizziness could be related to narcotics. Fluid bolus as needed. Fall precautions Diarrhea. Resolved with Lactinex Chronic medical conditions of ADHD, bipolar disorder, depression, schizophrenia and anxiety. Stable continue outpatient medications as appropriate DVT prophylaxis with SCD and early ambulation Discharge Planning Possible discharge later today or in the morning depending on clinical status Mayo Mallory MD February 08, 2017 09:49
[2017-02-08] MEDS ORDERED: SODIUM CHLOR 0.9% 250 ML INJ 250 ML IV PRN (11:00)
[2017-02-08] MEDS ORDERED: SUMAtriptan INJ 6 MG/0.5 ML VIAL SQ PRN (11:00)
[2017-02-08] MEDS ORDERED: ACETAMIN 325 MG/BUTALBITAL 50 MG/CAFFEINE 40 MG TAB PO PRN (11:00)
[2017-02-08] MEDS ORDERED: NS + KCL 20 MEQ INJ 1,000 ML IV PRN (11:00)
[2017-02-08] MEDS ORDERED: BUTATAB6 PO (11:10)
[2017-02-08] MEDS: cefTRIAXone INJ 1,000 MG in SODIUM CHLORIDE 0.9% INJ 100 ML IV SCH (20:00)
[2017-02-08] MEDS: CARBAMAZEPINE 200 MG PO SCH (20:09)
[2017-02-09] VITALS: BP 102/67; PULSE 77; RESP 16; TEMP 96.8; O2SAT 98
[2017-02-09 04:00] VITALS: BP 104/64; PULSE 66; RESP 18; TEMP 97.1; O2SAT 98
[2017-02-09 08:00] VITALS: BP 112/76; PULSE 68; RESP 16; TEMP 98.3; O2SAT 97
[2017-02-09] MEDS: CARBAMAZEPINE 100 MG PO SCH (09:00)
[2017-02-09] MEDS: SERTRALINE HCL 100 MG TAB PO SCH (09:32)
[2017-02-09] MEDS: LACTOBACILLUS ACIDOPHILUS TAB PO SCH (09:32)
[2017-02-09] MEDS: GABAPENTIN 100 MG CAP PO SCH (09:32)
--- NOTE | 2017-02-09 10:38 | HHI.PR ---
Subjective Remarks Follow-up hypotension, migraine and UTI. She feels much better denies headache. States she had transient dizziness with Imitrex. She wants to go home but requesting a note for work. Discussed with RN Objective Vitals Vital Signs Date Time Temp Pulse Resp B/P Pulse Ox O2 Delivery O2 Flow Rate FiO2 02/09/17 08:00 98.3 68 16 112/76 97 02/09/17 04:00 97.1 66 18 104/64 98 02/09/17 00:00 96.8 77 16 102/67 98 02/08/17 22:00 80 02/08/17 20:00 98.6 81 18 105/72 98 02/08/17 16:00 98.0 84 18 113/73 98 02/08/17 12:00 96.9 61 18 94/63 98 I/O 02/08/17 02/08/17 02/08/17 02/09/17 02/09/17 02/09/17 07:00 15:00 23:00 07:00 15:00 23:00 Intake Total 2245 ml 1120 ml 240 ml 240 ml Balance 2245 ml 1120 ml 240 ml 240 ml Intake Oral 240 ml 920 ml 240 ml 240 ml IV Total 2005 ml 200 ml # Voids 4 3 1 1 # Bowel Movements 1 0 0 0 Result Diagram: 02/07/17 0635 02/08/17 0545 Imaging Last Impressions Chest X-Ray 02/06/17 1850 Signed Impressions: Service Date/Time: Monday, February 06, 2017 19:02 - CONCLUSION: No acute disease. Jeffrey Quiroz MD Objective Remarks GENERAL: This is a well-nourished, well-developed patient, in no apparent distress. SKIN: No rashes, ecchymoses or lesions. Cool and dry. HEAD: Atraumatic. Normocephalic. No temporal or scalp tenderness. EYES: Pupils equal round and reactive. Extraocular motions intact. No scleral icterus. No injection or drainage. ENT: Nose without bleeding, purulent drainage or septal hematoma. Throat without erythema, tonsillar hypertrophy or exudate. Uvula midline. Airway patent. NECK: Trachea midline. No JVD or lymphadenopathy. Supple, nontender, no meningeal signs. CARDIOVASCULAR: Regular rate and rhythm without murmurs, gallops, or rubs. RESPIRATORY: Clear to auscultation. Breath sounds equal bilaterally. No wheezes , rales, or rhonchi. GASTROINTESTINAL: Abdomen soft, slightly tender hypogastric and right lower quadrants, nondistended. No rebound tenderness. No guarding. No CVA tenderness bilaterally MUSCULOSKELETAL: Extremities without clubbing, cyanosis, or edema. No joint tenderness, effusion, or edema noted. No calf tenderness. Negative Homans sign bilaterally. NEUROLOGICAL: Appears drowsy but oriented 4. Cranial nerves II through XII intact. Motor and sensory grossly within normal limits. Five out of 5 muscle strength in all muscle groups. Normal speech. Procedures none A/P Problem List: (1) Sepsis ICD Code: A41.9 Status: Acute (2) Urinary tract infection ICD Code: N39.0 Status: Acute Assessment and Plan This a 26-year-old female who returns to the emergency department after being evaluated for abdominal pain secondary to UTI. This time she passed out about 3 times the last 24 hours. She does have a history of seizures and is on Tegretol for this. Level is subtherapeutic. Sepsis with tachycardia, fever and leukocytosis. This is resolved. We'll continue antibiotics. Follow cultures Escherichia coli UTI/pyelonephritis. Switch Rocephin to Ceftin followed 2 weeks History of herpes encephalitis . 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 We'll continue to monitor Syncope with history of seizures and subtherapeutic Tegretol. Improved with therapeutic Tegretol level after receiving stat dose of 200 mg. continue home dose of 100 mg in the morning and 20 mg at bedtime and follow level. Seizure precautions. Unremarkable EEG. Patient aware not to drive for 6 months, carry young kids, swim alone and climb heights. Migraine attack. Imitrex subcutaneous 1. Improved continue Fioricet. Mild hypotension with dizziness could be related to narcotics. Improved. Fluid bolus as needed. Fall precautions Diarrhea. Resolved with Lactinex Chronic medical conditions of ADHD, bipolar disorder, depression, schizophrenia and anxiety. Stable continue outpatient medications as appropriate DVT prophylaxis with SCD and early ambulation Discharge Planning Stable for discharge Mayo Mallory MD February 09, 2017 10:38
[2017-02-09] MEDS ORDERED: CEFT250T8 PO (10:41)
--- NOTE | 2017-02-09 10:43 | HHI.DS ---
Discharge Summary Admission Date February 06, 2017 at 21:08 Discharge Date: February 09, 2017 Admitting Diagnosis sepsis, dehydration with hypotension, UTI (1) Sepsis ICD Code: A41.9 Diagnosis: Principal (2) Urinary tract infection ICD Code: N39.0 Diagnosis: Principal Procedures none Brief History - From Admission This a 26-year-old female who returns to the emergency department after being evaluated for abdominal pain secondary to UTI. This time she passed out about 3 times the last 24 hours. She passed out 2 days ago at work and then again yesterday and then had a near syncopal episode. She reports of being lightheaded and lost her vision followed by her hearing. Is not known when she had the syncopal episode whether she was sitting or standing, and she has not remember the episode. She does have a history of seizures and is on Tegretol for this. Level is subtherapeutic. Her mother states she was trying to call her in the bathroom for about 10 minutes and she was out for another 5 minutes after she was found. The patient denies any injury or tongue biting. She did apparently landed on her left shoulder and had some temporary discomfort on the anterior portion of the shoulder but this is resolved at the moment. She denies any head or neck trauma. Today she reports of a mild occipital headache. She has had a fever and was treated with Macrobid for urinary tract infection. She states she is taking her medications correctly. She does not have a primary care physician, Dr. De Dios is her psychiatrist. She is on multiple psychotropic agents. She does have a history of ADHD, bipolar disorder , depression, schizophrenia, migraine and anxiety. 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 She denies stiff neck, visual changes, numbness, focal weakness, nausea and vomiting at this time. She reports of dysuria and constant abdominal and lower back pain for the past several days. Today she feels better and wants to go home but understands she needs to stay to receive IV antibiotics. Last febrile episode of 101 about 10 hours ago CBC/BMP: 02/07/17 0635 02/08/17 0545 Significant Findings Laboratory Tests Test 5/6/17 5/6/17 5/7/17 5/8/17 18:35 21:00 06:35 05:45 White Blood Count 12.9 TH/MM3 (4.0-11.0) Neutrophils (%) (Auto) 84.2 % 80.5 % (16.0-70.0) (16.0-70.0) Neutrophils # (Auto) 10.8 TH/MM3 8.2 TH/MM3 (1.8-7.7) (1.8-7.7) Potassium Level 3.3 MEQ/L 3.4 MEQ/L (3.5-5.1) (3.5-5.1) Blood Urea Nitrogen 6 MG/DL (7-18) 5 MG/DL (7-18) 3 MG/DL (7-18) Carbamazepine (Tegretol) Level 2.3 MCG/ML (4.0-12.0) Urine Leukocyte Esterase TRACE (NEG) Urine WBC 20-24 /hpf (0-5) Urine Bacteria FEW /hpf (NONE) Red Blood Count 3.64 MIL/MM3 (4.00-5.30) Hemoglobin 11.5 GM/DL (11.6-15.3) Hematocrit 33.2 % (35.0-46.0) Chloride Level 111 MEQ/L 110 MEQ/L (98-107) (98-107) Calcium Level 7.3 MG/DL 8.1 MG/DL (8.5-10.1) (8.5-10.1) Protein Corrected Calcium 8.0 MG/DL (8.5-10.1) Total Protein 5.8 GM/DL (6.4-8.2) Albumin 2.5 GM/DL (3.4-5.0) Creatinine 0.41 MG/DL (0.50-1.00) Imaging Last Impressions Chest X-Ray 02/06/17 1850 Signed Impressions: Service Date/Time: Monday, February 06, 2017 19:02 - CONCLUSION: No acute disease. Jeffrey Quiroz MD PE at Discharge GENERAL: This is a well-nourished, well-developed patient, in no apparent distress. SKIN: No rashes, ecchymoses or lesions. Cool and dry. HEAD: Atraumatic. Normocephalic. No temporal or scalp tenderness. EYES: Pupils equal round and reactive. Extraocular motions intact. No scleral icterus. No injection or drainage. ENT: Nose without bleeding, purulent drainage or septal hematoma. Throat without erythema, tonsillar hypertrophy or exudate. Uvula midline. Airway patent. NECK: Trachea midline. No JVD or lymphadenopathy. Supple, nontender, no meningeal signs. CARDIOVASCULAR: Regular rate and rhythm without murmurs, gallops, or rubs. RESPIRATORY: Clear to auscultation. Breath sounds equal bilaterally. No wheezes , rales, or rhonchi. GASTROINTESTINAL: Abdomen soft, slightly tender hypogastric and right lower quadrants, nondistended. No rebound tenderness. No guarding. No CVA tenderness bilaterally MUSCULOSKELETAL: Extremities without clubbing, cyanosis, or edema. No joint tenderness, effusion, or edema noted. No calf tenderness. Negative Homans sign bilaterally. NEUROLOGICAL: Appears drowsy but oriented 4. Cranial nerves II through XII intact. Motor and sensory grossly within normal limits. Five out of 5 muscle strength in all muscle groups. Normal speech. Hospital Course This a 26-year-old female who returns to the emergency department after being evaluated for abdominal pain secondary to UTI. This time she passed out about 3 times the last 24 hours. She does have a history of seizures and is on Tegretol for this. Level is subtherapeutic. Sepsis with tachycardia, fever and leukocytosis. This is resolved. We'll continue antibiotics. Follow cultures Escherichia coli UTI/pyelonephritis. Switch Rocephin to Ceftin followed 2 weeks History of herpes encephalitis . Patient's clinical picture does not fit [facility] [employer] infection. We'll continue to monitor Syncope with history of seizures and subtherapeutic Tegretol. Improved with therapeutic Tegretol level after receiving stat dose of 200 mg. continue home dose of 100 mg in the morning and 20 mg at bedtime and follow level. Seizure precautions. Unremarkable EEG. Patient aware not to drive for 6 months, carry young kids, swim alone and climb heights. Migraine attack. Imitrex subcutaneous 1. Improved continue Fioricet. Mild hypotension with dizziness could be related to narcotics. Improved. Fluid bolus as needed. Fall precautions Diarrhea. Resolved with Lactinex Chronic medical conditions of ADHD, bipolar disorder, depression, schizophrenia and anxiety. Stable continue outpatient medications as appropriate DVT prophylaxis with SCD and early ambulation Pt Condition on Discharge: Stable Discharge Disposition: Discharge Home Discharge Time: > 30 minutes Discharge Instructions DIET: Follow Instructions for: As Tolerated, No Restrictions Activities you can perform: Regular-No Restrictions Activities to Avoid: Driving Follow up Referrals: PCP Follow-up - 1 Week New Medications: Cefuroxime (Ceftin) 250 Mg Tab 250 MG PO BID Infection #22 Ref 0 TAB Odcvyoxueg-Ecyufpimlpsqm-Cfftdkdl (Rvilteswiz-Ukmlpkeiubhqz-Jnxdlcez) 50-325-40 Mg Tab 1 TAB PO Q6H PRN migraine #28 TAB Lactobacillus Acidophilus (Acidophilus/l-Sporogenes) 1 Tab Tab 1 TAB PO TID Bowel Management #45 TAB Continued Medications: Carbamazepine ER 12 HR (Equetro ER 12 HR) 100 Mg Cap 100 MG PO AM #60 Ref 0 CAP Carbamazepine ER 12 HR (Equetro ER 12 HR) 200 Mg Cap 200 MG PO HS #60 Ref 0 CAP Gabapentin (Neurontin) 100 Mg Cap 100 MG PO TID #90 Ref 0 CAP Methocarbamol (Robaxin) 500 Mg Tab 500 MG PO TID PRN Muscle Spasm Ref 0 TAB Sertraline (Zoloft) 100 Mg Tab 100 MG PO DAILY #30 Ref 0 TAB Mayo Mallory MD February 09, 2017 10:43
== END 2017-02-09 11:30 | disposition home or self-care (01) | DRG 872 ==
LOC: PHED 18:09 → PHEDA 21:08 → PH3A 22:29
PROVIDERS: ADMIT Internal Medicine; ATTEND Internal Medicine
DX: A41.9 Sepsis, unspecified organism (principal); I95.2 Hypotension due to drugs; N12 Tubulo-interstitial nephritis, not specified as acute or chronic; G40.909 Epilepsy, unspecified, not intractable, without status epilepticus; G43.909 Migraine, unspecified, not intractable, without status migrainosus; F90.9 Attention-deficit hyperactivity disorder, unspecified type; F31.9 Bipolar disorder, unspecified; F41.9 Anxiety disorder, unspecified; F20.9 Schizophrenia, unspecified; K21.9 Gastro-esophageal reflux disease without esophagitis; Z86.61 Personal history of infections of the central nervous system; E86.0 Dehydration; R30.0 Dysuria; M54.5 Low back pain; B96.89 Other specified bacterial agents as the cause of diseases classified elsewhere; R19.7 Diarrhea, unspecified; B96.20 Unspecified Escherichia coli [E. coli] as the cause of diseases classified elsewhere; T40.605A Adverse effect of unspecified narcotics, initial encounter; Y92.9 Unspecified place or not applicable; R00.0 Tachycardia, unspecified
CPT/HCPCS: 71010; 80048; 80053; 80156; 80307; 81001; 82550; 83605; 83735; 84703; 85025; 87040; 87077; 87086; 87186; 93005; 95819; 96361; 96365; 99284; J0692; J0696; J1200; J3030; J3370; J3475; J7030; J7050

== ENCOUNTER 2017-07-05 14:25 | Emergency (ER) | payer OTHER ==
[~2017-07-05] VITALS: Ht 160 cm; Wt 68.0 kg
[~2017-07-05 14:25] MED LIST changes: +BUTATAB6 PO; +CEFT250T8 PO; +LACT PO; +ROBA500T PO
[2017-07-05 14:26] VITALS: BP 119/82; PULSE 61; RESP 20; TEMP 98; O2SAT 99
--- NOTE | 2017-07-05 14:35 | PD ---
HPI Chief Complaint: shoulder pain Time Seen by Provider: 14:26 Travel History International Travel<30 days: No Contact w/Intl Traveler<30days: No Traveled to known affect area: No History of Present Illness HPI The patient was seen and examined in the presence of the nurse. Patient has had chronic migraine trouble since the age of 7. She complains of a bilateral throbbing her temples consistent with her usual migraine headache. No thunderclap onset or fever or head injury. She did fall today and landed on her right shoulder. She complains of right shoulder pain which is worse with movement. PFSH Past Medical History ADHD: Yes Autoimmune Disease: No Bipolar Disorder: Yes Anxiety: Yes Depression: Yes Cancer: No Cardiovascular Problems: Yes (HEART MURMUR) Diabetes: No Diminished Hearing: No Endocrine: No GERD: Yes Genitourinary: Yes (UTI this admit) Headaches: Yes Immune Disorder: No Implanted Vascular Access Dvce: No Musculoskeletal: No Neurologic: No ("HERPES OF THE BRAIN") Psychiatric: Yes (SCHIZOPHRENIA DX AGE 9, BIPOLAR, RAD, ADHD) Reproductive: No Respiratory: No Migraines: Yes Schizophrenia: Yes Thyroid Disease: No : 3 Para: 3 Miscarriage: 0 : 0 Tubal Ligation: Yes Past Surgical History Section: Yes (X's 3) Other Surgery: Yes (C - SECTION, TUBAL) Social History Alcohol Use: No Tobacco Use: No Substance Use: No Allergies-Medications (Allergen,Severity, Reaction): Coded Allergies: No Known Allergies (Verified , 07/05/17) Reported Meds & Prescriptions Reported Meds & Active Scripts Active No Active Prescriptions or Reported Medications Review of Systems General / Constitutional: No: Fever HENT: Positive: Headaches Cardiovascular: No: Chest Pain or Discomfort Respiratory: No: Cough Physical Exam Narrative NEUROLOGICAL: Awake and alert. Pupils are equal round and reactive. Motor and sensory grossly within normal limits. Five out of 5 muscle strength in all muscle groups. Normal speech. SKIN: Focused skin assessment reveals no rash or ulcers. Skin is warm and dry. Palpation shows no induration or nodules. Right shoulder: Some tenderness to the top of the scapula without bruising or open wound. Good range of motion. Data Data Last Documented VS Vital Signs Date Time Temp Pulse Resp B/P (MAP) Pulse Ox O2 Delivery O2 Flow Rate FiO2 07/05/17 14:34 99 07/05/17 14:26 98.0 61 20 119/82 (94) Orders Orders Shoulder, Complete (>2vws) (07/05/17 ) Acetamin-Hydrocod 325-5 Mg ([place] 5-325 (07/05/17 14:45) MDM Medical Decision Making Medical Screen Exam Complete: Yes Emergency Medical Condition: Yes Medical Record Reviewed: Yes Differential Diagnosis Shoulder fracture, dislocation, contusion Narrative Course I have reviewed the patient's electronic medical record. Patient was here earlier this year for migraine Patient is neurologically intact I gave her 2 pain pills I reviewed her right shoulder x-rays which are normal Reiterated the importance that she follow up with either primary care or neurology Diagnosis Primary Impression: Migraine Qualified Codes: G43.909 - Migraine, unspecified, not intractable, without status migrainosus Additional Impression: Contusion of right shoulder, initial encounter Additional Instructions: The patient was advised to follow up with their physician and return if they worsen. Med/Other Pt SpecificInfo: Other Scripts No Active Prescriptions or Reported Meds Disposition: 01 DISCHARGE HOME Condition: Stable Martín Caldwell MD Jul 05, 2017 14:35
[2017-07-05] MEDS ORDERED: ACETAMINOPHEN/HYDROcodone 325 MG/5 MG TAB PO ONE (14:45)
--- NOTE | 2017-07-05 14:57 | RADRPT ---
EXAM DATE/TIME: 07/05/2017 14:44 [facility] COMPARISON: No previous studies available for comparison. INDICATIONS : Right shoulder pain; fell today. MEDICAL HISTORY : None. SURGICAL HISTORY : None. ENCOUNTER: Initial ACUITY: 1 day PAIN SCORE: 9/10 LOCATION: Right shoulder. FINDINGS: Multiple view examination of the right shoulder demonstrates no evidence of fracture or dislocation. The glenohumeral and acromioclavicular joints are maintained. There is normal range of motion betwe en internal and external rotation. Bony mineralization is normal. CONCLUSION: 1. No acute fracture or dislocation. Dheeraj Wall MD on July 05, 2017 at 14:55 Board Certified Radiologist. This report was verified electronically.
[2017-07-05 15:49] VITALS: BP 120/87
== END 2017-07-05 15:50 | disposition home or self-care (01) ==
LOC: PHED 14:25
DX: G43.909 Migraine, unspecified, not intractable, without status migrainosus (principal); S40.011A Contusion of right shoulder, initial encounter; W19.XXXA Unspecified fall, initial encounter
CPT/HCPCS: 73030; 99283